=== PATIENT | female | born 1955 ===

== ENCOUNTER → 2024-07-25 09:24 | Outpatient (REF) | payer MEDICARE, OTHER, SELFPAY | LOC: RAD 09:24 | PROVIDERS: ATTENDING PHYSICIAN Internal Medicine; FAMILY PHYSICIAN Internal Medicine | DX: N18.32 Chronic kidney disease, stage 3b (principal); I10 Essential (primary) hypertension | CPT/HCPCS: 93975 ==

== ENCOUNTER → 2025-05-13 11:44 | Outpatient (REF) | payer MEDICARE, OTHER, SELFPAY | LOC: PAVMRI 11:44 | PROVIDERS: ATTENDING PHYSICIAN Internal Medicine; FAMILY PHYSICIAN Internal Medicine | DX: N18.32 Chronic kidney disease, stage 3b (principal); I10 Essential (primary) hypertension | CPT/HCPCS: 74185; A9585 ==